=== PATIENT | male | born 1950 ===

== ENCOUNTER 2017-10-25 15:12 | Outpatient (CLI) | payer MEDICARE ==
[2017-10-25 22:34] LABS: Creatinine, Urine 52.34 mg/dL (63-166); Microalbumin Urine Less than 5.0 mg/dL (0.5-50.0)
[2017-10-27 20:50] LABS: Follow-up Chemistry Comp? YES; Follow-up Result - Chemistry REPORT FAXED
== END 2017-10-25 15:13 | disposition home or self-care (01) ==
LOC: MADLAB 15:12
PROVIDERS: ATTEND Internal Medicine
DX: E78.5 Hyperlipidemia, unspecified (principal); E11.9 Type 2 diabetes mellitus without complications
CPT/HCPCS: 82043